=== PATIENT | female | born 1950 | race Caucasian/White ===

== ENCOUNTER → 2018-08-19 | Outpatient (CLI) | payer MEDICARE, OTHER ==
[~2018-08-19] MED LIST: DOXEPIN 10 MG C10 M1 PO; HYDROCODON-ACE1 EAC7 PO; LOTENSIN10 MG PO; MEDROLDOSEPACK PO; PROZAC10 MG PO; VITAMIN D5000 UNIT PO
--- NOTE | ~2018-08-19 | PAINCON ---
[address] [address] PAIN MANAGEMENT CONSULTATION Name: MARIA ISABEL SHEPPARD Room: [facility] Rosario#: [id number] Admission: 08/19/18 Attend Phys: Pat Pinto MD Discharge: Date of : 50 Report #: [id number] THIS REPORT FOR: //name// CC: Marina Pinto DATE OF SERVICE: 08/19/2018 CHIEF COMPLAINT: Low back pain, which has gotten worse over the last year. HISTORY: The patient is a 68-year-old female, who has been referred to the pain clinic for evaluation. The patient has been experiencing increasing back pain and discomfort over the past year. She notes that activities such as standing, walking stairs, and other activities of daily living are becoming more problematic. She describes her discomfort as constant, burning, shooting, and aching pain. She has been followed by her primary because of fibromyalgia. Also, she has had pain, which is problematic and caused her to sleep in a recliner at night. She has been using hydrocodone to help combat the pain. She feels that her pain can also be worsened in the morning after she wakes up. She states that going up and down stairs are problematic. She feels that standing on her feet for a prolonged period of time is problematic. She describes her pain as burning, shooting, cramping, aching, crushing, pulling, gnawing, throbbing, pounding, sharp, stabbing, and tender. PAST MEDICAL HISTORY: Hypertension, irritable bowel, emotional problems/depression, fibromyalgia/arthritis, osteoarthritis, and chronic low back pain with sciatica. PAST SURGICAL HISTORY: Foot surgeries x 3 over the past 30 years, gastric bypass 18 years ago, and hysterectomy 25 years ago. MEDICATIONS: Lotensin 10 mg, vitamin D3 5000 units weekly, doxepin 10 mg at bedtime, Prozac 10 mg daily, and hydrocodone/acetaminophen ____ mg 1 tablet q.4-6 hours p.r.n. pain. ALLERGIES: THE PATIENT HAS DESCRIBED SOME PROBLEMS WITH NONSTEROIDAL ANTI-INFLAMMATORY MEDICATIONS, THEY IRRITATE HER STOMACH. CODEINE HAS BEEN USED IN THE PAST, BUT CAUSED ITCHING. SOCIAL HISTORY: She is a homemaker, previously was involved in secretarial work for approximately 25 years, has not worked in the last 25 years. REVIEW OF SYSTEMS: Generally in good health, has fatigue and weakness. She wears glasses. She has irritable bowel syndrome. PAIN CLINIC ASSESSMENT AND PQRS: [place] [address] PAIN MANAGEMENT CONSULTATION Name: MARIA ISABEL SHEPPARD ARSLAN [id number] Admission: 08/19/18 Attend Phys: Pat Pinto MD Discharge: Date of : 50 Report #: [id number] 1. History of osteoarthritis. The patient has some arthritis in her lower back. She has been seen by band presser, Dr. Damon Amaya. 2. Pain intensity is 3/10. 3. Fall history. The patient has not fallen in the last 3 months. 4. Blood thinner. The patient is not on a blood thinning medication. 5. Hypertension. The patient is being treated for hypertension. 6. Opioids greater than 6 weeks. The patient has been using opioid medications through her primary. 7. Risk assessment tool, low for opioid use. 8. Functional assessment tool. 9. Recreational drug use. The patient denies use of recreational drugs. 10. Tobacco: The patient denies use of tobacco. 11. Alcohol: The patient denies frequent use of alcoholic beverages. PHYSICAL EXAMINATION: GENERAL: The patient is a well-developed, well-nourished white female. She appears her stated age. She is alert and oriented x 3. Affect is appropriate. Speech is fluent. Height is 5 feet 5 inches, weight is 214 pounds, and BMI is 35.7. VITAL SIGNS: Blood pressure is 156/96, heart rate is 90, respiratory rate is 16, room air saturation is 94%, and temperature is 98.3. HEENT: Normocephalic, atraumatic. Extraocular eye muscles intact. Sclerae nonicteric. Mucous membranes are moist. NECK: Without adenopathy or JVD. HEART: Regular rate. S1, S2. LUNGS: Clear to auscultation without rhonchi or rales. EXTREMITIES: Upper extremity muscle strength is judged to be 5-/5 for the major muscle groups in the upper extremity. Deep tendon reflexes are +1 at the biceps bilaterally. [employer] strength is 5/5. The patient has scoliosis in the upper thoracolumbar area, it is mild. Lower extremity muscle strength is judged to be 5-/5 for the major muscle groups in the lower extremity. The patient notes some increased pain with pain radiating down into the low back area with some pain radiating down into the L4-L5 and L5-S1 dermatomal distribution. She has some pins and needle sensation in the right flank area. She notes some stabbing sensation in the right flank area as well. She has some pain that can radiate down into the left buttocks area. LABORATORY DATA: MRI of the lumbar spine dated 04/22/2018: 1. There is mild S-shaped thoracolumbar scoliosis levoconvex superiorly. 2. L1-L2. There is moderate disk osteophyte complex, largest in the right lateral territory. It is small posteriorly. 3. L2-L3. There is a small posterior disk bulge. There is a small moderate superimposed left foramen and lateral protrusion. 4. L3-L4. There is a small moderate mostly lateral disk bulge. It impinges upon the left neural foramen mildly without significant stenosis. 5. L4-L5. There is a tiny right paracentral [place] [address] PAIN MANAGEMENT CONSULTATION Name: MARIA ISABEL SHEPPARD Room: [facility]#: [id number] Admission: 08/19/18 Attend Phys: Pat Pinto MD Discharge: Date of : 50 Report #: [id number] protrusion. There is no significant stenosis. Facet arthrosis is mild on the right. 6. L5-S1. There is a minimal posterior disk bulge. The facet arthritis is mild bilaterally. There is a right paracentral annular tear. IMPRESSION: 1. Low back pain at L4 area and L5 area with MRI findings of annular tear and protrusion at L4-L5 as well as L5-S1. 2. Hypertension. 3. Irritable bowel. 4. Emotional problems/depression. 5. Fibromyalgia/arthritis. 6. Osteoarthritis. 7. Chronic low back pain with sciatica. RECOMMENDATIONS: We have discussed treatment options with the patient and her . Risks and benefits of epidural steroid injection were discussed. Possible complications of the procedure were reviewed. A model was used to indicate the area of probable pathology. The patient states that the area of her low back and buttocks area were involved. We explained the possible complications of an epidural steroid injection, which could include but are not limited to infection, worsening of pain, no improvement in pain, increased muscle soreness, spinal headache, nerve trauma, and paralysis. The patient elects to proceed. The patient will return to the pain clinic at which time she will then undergo an epidural steroid injection to help decrease her pain and discomfort. We would like to thank you for letting us to participate in her care. We hope she continues to improve. By: [id number]. Óscar Pinto MD /RUSLAN
== END ==
LOC: M.PC 07-24 12:10
DX: M51.27 Other intervertebral disc displacement, lumbosacral region (principal); M51.37 Other intervertebral disc degeneration, lumbosacral region; M54.40 Lumbago with sciatica, unspecified side; M19.90 Unspecified osteoarthritis, unspecified site; M79.7 Fibromyalgia; I10 Essential (primary) hypertension; K58.9 Irritable bowel syndrome, unspecified; F32.9 Major depressive disorder, single episode, unspecified; F90.9 Attention-deficit hyperactivity disorder, unspecified type

== ENCOUNTER → 2018-08-26 | Outpatient (CLI) | payer MEDICARE, OTHER ==
--- NOTE | ~2018-08-26 | PAINCON ---
[address] [address] PAIN MANAGEMENT CONSULTATION Name: VALARIEMAIRA ISABEL ARSLAN [id number] Admission: 08/26/18 Attend Phys: Pat Pinto MD Discharge: Date of : 50 Report #: [id number] THIS REPORT FOR: //name// CC: Marina Pinto DATE OF SERVICE: 08/26/2018 CHIEF COMPLAINT: Low back pain with pain that is burning and radiating down into the low back area. Pain has worsened over the past year. The patient describes her discomfort as a pain with walking, standing, climbing stairs and activity of daily living. It is more problematic in the morning. She has been seen by portable feed mill operator, Dr. Amaya. She has been treated for fibromyalgia. She had epidural steroid injection about 15-20 years ago and was found this helpful. She has been sleeping in a recliner because of the pain and discomfort she is experiencing. She has returned today for an epidural steroid injection. She has continued to use hydrocodone p.r.n. to help control the pain. She has used doxepin at night as well. ALLERGIES: No known drug allergies. MEDICATIONS: Lotensin 10 mg, vitamin D3 5000 units weekly, doxepin 10 mg at bedtime, Prozac 10 mg, hydrocodone 10/325 one p.o. q. 4-6 hours p.r.n. PAIN CLINIC ASSESSMENT/PQRS: 1. History of osteoarthritis with a sharp pain in the low back area. The patient is being followed by Dr. Damon Amaya, who is a portable feed mill operator. 2. Height 5 feet 5 inches, 214 pounds, BMI 35.7. 3. Vital signs: Blood pressure 156/96, heart rate 90, respiratory rate 16, room air saturation 96%, temperature 98.3. 4. Pain intensity 08/10. 5. Fall history: The patient has not fallen in the last 3 months. 6. Blood thinner. The patient is not on a blood thinning medication. 7. Hypertension. The patient is being treated for hypertension. 8. Opioids greater than 6 weeks. The patient is receiving opioid medication. 9. Risk assessment tool, low for opioid use. 10. Functional assessment tool. 11. Recreational drug use. The patient denies use of recreational drugs. 12. Tobacco: The patient denies use of tobacco. 13. Alcohol: The patient denies frequent use of alcoholic beverages. PHYSICAL EXAMINATION: GENERAL: The patient is a well-developed, well-nourished white female. Appears her stated age. She is alert and oriented x 3. Her affect is appropriate. Speech is fluent. Upper extremity muscle strength is judged to be 5/5 [place] [address] PAIN MANAGEMENT CONSULTATION Name: MARIA ISABEL SHEPPARD Room: [facility]#: [id number] Admission: 08/26/18 Attend Phys: Pat Pinto MD Discharge: Date of : 50 Report #: [id number] major muscle groups in the upper extremity. HEART: Regular rate. ABDOMEN: Nontender. Bowel sounds present. LUNGS: Clear to auscultation. EXTREMITIES: Lower extremity muscle strength. MUSCULOSKELETAL: The patient complains of pain and discomfort radiating down into the low back area involving the right L4-L5 dermatomal distribution. IMPRESSION: 1. Lumbar radiculopathy, L4-L5 dermatomal distribution. 2. . RECOMMENDATIONS: We discussed treatment options with the patient. Risks and benefits of an epidural steroid injection were discussed. The patient elects to proceed with that injection at this juncture. The possible complication of the procedure, which could include but are not limited to infection, worsening pain, no improvement in pain, increased nerve irritation, spinal headache were discussed and the patient elects to proceed. PROCEDURE NOTE: The patient was taken to the procedure area. She was assisted in getting on the examination table. Her back was sterilely prepped in the L4-L5 dermatomal distribution. A use of fluoroscopy using anterior and posterior as well as lateral appearing were implemented. The patient's back had been sterilely prepped with Betadine. A 0.25% bupivacaine was infiltrated at the L4-L5 area on the right with some right lateral approach. This was through the midline. A 17-gauge Tuohy with loss of resistance technique was used to gain access to the epidural space. There was no CSF, heme or paresthesia. Total of 80 mg Depo-Medrol, 40 mg triamcinolone and 2 mL of 0.25% bupivacaine was then injected. The patient tolerated the procedure well. There were no complications. She remained in the Pain Clinic for an appropriate amount of time. Total of 16 seconds fluoroscopy time was used. The patient's pain decreased too at the time of discharge. She will follow up in the future as needed. We would like to thank you for letting us participate in her care. We hope she continues to improve. By: [id number]. Óscar Pinto MD /robby
== END | disposition home or self-care (01) ==
LOC: M.PC 04:48
DX: M54.16 Radiculopathy, lumbar region (principal); G89.29 Other chronic pain; I10 Essential (primary) hypertension; M79.7 Fibromyalgia; Z79.899 Other long term (current) drug therapy; Z79.891 Long term (current) use of opiate analgesic; Z98.890 Other specified postprocedural states

== ENCOUNTER → 2018-09-23 | Outpatient (CLI) | payer MEDICARE, OTHER ==
[~2018-09-23] MED LIST changes: +NORCO 10-325 T1 EACH PO
--- NOTE | 2018-09-25 12:05 | PAINCON ---
[address] [address] PAIN MANAGEMENT CONSULTATION Name: MARIA ISABEL SHEPPARD Room: [facility] Ponce#: [id number] Admission: 09/23/18 Attend Phys: Pat Pinto MD Discharge: Date of : 50 Report #: [id number] THIS REPORT FOR: //name// CC: Marina Pinto DATE OF SERVICE: 09/23/2018 CHIEF COMPLAINT: The pain has improved since the last injection. HISTORY OF PRESENT ILLNESS: The patient is a 68-year-old female who has been referred to the pain clinic for evaluation of back and leg pain. The patient has noted an improvement in her pain. She rates it as a 0/10 at this point. She is sleeping better. She had some flushing in her face and low-grade fever for the first 2-3 days. She did feel some jitteriness in her legs. She received 100% improvement from her pain after the epidural steroid injection. She states that she has some discomfort around the low back area. She did have a gastric bypass. She has some redundancy of weight of skin around her abdomen. She feels that this might be the cause of that discomfort. Overall, she is quite pleased with the way things are going. She has a dog, who has cataracts. The dog is going blind. She and her are planning on going on vacation. They may have to delay their vacation secondary to the dog needing cataract surgery. Overall, things are going well. She has returned to the pain clinic and will follow up in the future as needed. ALLERGIES: No known drug allergies. CURRENT MEDICATIONS: Lotensin 10 mg, vitamin D3 5000 units weekly, doxepin 10 mg at bedtime, Prozac 10 mg, hydrocodone 10/325 one p.o. every 4-6 p.r.n. PAIN CLINIC ASSESSMENT/PQRS: 1. History of osteoarthritis. The patient has some pain in her low back area. She is being treated with Rheumatology by Dr. Amaya. 2. Height 5 feet 5 inches, weight 218 pounds, BMI is 36. 3. Pain intensity is 0/10. 4. Vital Signs: Blood pressure 160/82, heart rate 94, respiratory rate 16, room air saturation 96%. Temperature 98.4. 5. Fall history: The patient has not fallen in the last 3 months. 6. Blood thinner. The patient is not on a blood thinning medication. 7. Hypertension. The patient is being treated for hypertension. 8. Opioids greater than 6 weeks. The patient receives her medications from one source. 9. Risk assessment tool, low for opioid use. 10. Functional assessment tool. 11. Recreational drug use. The patient denies [place] [address] PAIN MANAGEMENT CONSULTATION Name: VALARIEMARIA ISABELDORIS MCADNIELS Room: [facility]#: [id number] Admission: 09/23/18 Attend Phys: Pat Pinto MD Discharge: Date of : 50 Report #: [id number] 12. Tobacco: The patient denies use of tobacco. 13. Alcohol: The patient denies frequent use of alcoholic beverages. PHYSICAL EXAMINATION: GENERAL: The patient is a well-developed, well-nourished white female. Appears her stated age. She is alert and oriented x 3. Her affect is appropriate. Speech is fluent. HEENT: Normocephalic, atraumatic. Extraocular eye muscles intact. Sclerae nonicteric. Mucous membranes are moist. NECK: Without adenopathy or JVD. HEART: Regular rate. ABDOMEN: Nontender. Bowel sounds present. EXTREMITIES: Upper extremity muscle strength is judged to be 5-/5 for the major muscle groups in the upper extremity. Lower extremity muscle strength is 5-/5 for the lower extremities. The patient notes increased pain and discomfort with prolonged standing. The patient without significant scoliosis, kyphosis or lordosis. IMPRESSION: 1. Lumbar radiculopathy, L4-L5 dermatomal distribution improved after epidural steroid injection. 2. Hypertension. RECOMMENDATIONS: We discussed treatment options with the patient. At this juncture, she feels that things are going reasonably well. She will consider an epidural steroid injection in the future. She has some concerns about her animal. He has cataracts. She and her are contemplating postponing their vacation. They usually travel using their fifth wheel. They were going to go down toward [place]. The dog will probably undergo cataract surgery. After they have been cleared, they would then probably go on the vacation. The patient has a Medrol Dosepak she was given at the last visit. Should her pain starts to increase, she will try the Medrol Dosepak. She will also be open to return in to the pain clinic for another additional epidural steroid injection in the future should she need. We would like to thank you for letting us participate in her care. We hope she continues to improve. <ELECTRONICALLY SIGNED> By: Pat Pinto MD 09/25/18 1205 [id number] 15N. Óscar Pinto MD /nt
== END ==
LOC: M.PC 04:50
DX: M54.16 Radiculopathy, lumbar region (principal); G89.29 Other chronic pain; M19.90 Unspecified osteoarthritis, unspecified site; I10 Essential (primary) hypertension; Z79.899 Other long term (current) drug therapy; Z79.891 Long term (current) use of opiate analgesic